=== PATIENT | female | born 1955 | race Caucasian/White ===

== ENCOUNTER 2023-10-30 23:59 | Emergency (ER) | payer MEDICARE, SELFPAY ==
[2023-10-31] MEDS ORDERED: Lidocaine 4% Patch ONE (00:30)
[2023-10-31] MEDS ORDERED: Acetaminophen 325 MG TAB ONE (00:30)
[2023-10-31] MEDS ORDERED: Orphenadrine Citrate 60 MG/2 ML VIAL ONE (00:30)
[2023-10-31] MEDS ORDERED: Bacitracin 1 PK ONE (01:26)
== END 2023-10-31 02:50 | disposition home or self-care (01) ==
LOC: MADERS 23:59
DX: S13.4XXA Sprain of ligaments of cervical spine, initial encounter (principal); S83.92XA Sprain of unspecified site of left knee, initial encounter; S46.819A Strain of other muscles, fascia and tendons at shoulder and upper arm level, unspecified arm, initial encounter; I10 Essential (primary) hypertension; Z79.899 Other long term (current) drug therapy; W18.30XA Fall on same level, unspecified, initial encounter
CPT/HCPCS: 70450; 70486; 72125; 96372; J2360